=== PATIENT | female | born 1940 | race Caucasian/White ===

== ENCOUNTER 2017-01-03 17:43 | Emergency (ER) | payer BC, MEDICARE ==
[~2017-01-03] VITALS: Ht 162.6 cm; Wt 61.2 kg
[2017-01-03 18:24] VITALS: BP 108/65
[2017-01-03 18:33] LABS: ANION GAP 9 mmol/L (5-15); BLOOD UREA NITROGEN 9 mg/dL (7-18); CALCIUM 9.4 MG/DL (8.5-10.1); CARBON DIOXIDE 26 MMOL/L (21-32); CHLORIDE 99 MMOL/L (98-107); CREATININE 0.6 MG/DL (0.55-1.30); POTASSIUM 3.9 MMOL/L (3.5-5.1); SODIUM 134 MMOL/L (136-145)
[2017-01-03 18:37] LABS: HEMATOCRIT 46.6 % (37.0-47.0); HEMOGLOBIN 14.9 G/DL (12.0-16.0); MEAN CORPUSCULAR VOLUME 112 FL (80-99); PLATELET COUNT 200 K/UL (150-450); RED BLOOD COUNT 4.17 M/UL (4.20-5.40); RED CELL DISTRIBUTION WIDTH 10.8 % (11.6-14.8); WHITE BLOOD COUNT 7.2 K/UL (4.8-10.8)
[2017-01-03 18:38] LABS: BASOPHILS % (AUTO) 1.9 % (0.0-2.0); EOSINOPHILS % (AUTO) 0.8 % (0.0-3.0); LYMPHOCYTES % (AUTO) 29.2 % (20.0-45.0); NEUTROPHILS % (AUTO) 56.1 % (45.0-75.0)
[2017-01-03 18:39] LABS: ALANINE AMINOTRANSFERASE 69 U/L (12-78); ALBUMIN 3.7 G/DL (3.4-5.0); ALBUMIN/GLOBULIN RATIO 1.1 (1.0-2.7); ALKALINE PHOSPHATASE 75 U/L (46-116); ASPARTATE AMINO TRANSFERASE 86 U/L (15-37); BILIRUBIN,TOTAL 0.4 MG/DL (0.2-1.0)
[2017-01-03 19:18] VITALS: BP 109/67
[2017-01-03 19:20] VITALS: BP 109/67
--- NOTE | 2017-01-03 19:38 | Emergency Room Report ---
History of Present Illness General Chief Complaint: Alcohol Intoxication Source: EMS Present Illness HPI 76-year-old female presents ED for evaluation. States that she has been drinking today at a hotel. Hotel staff called 911. Patient states she's been feeling depressed because several family members have . Denies any suicidal homicidal ideation. Denies drug use. No other aggravating relieving factors. Denies any other associated symptoms Allergies: Coded Allergies: No Known Allergies (Unverified , 01/03/17) Patient History Past Medical History: none Past Surgical History: none Pertinent Family History: none Social History: Reports: alcohol use, Denies: smoking, drug use Now: No Immunizations: UTD Reviewed Nursing Documentation: PMH: Agreed, PSxH: Agreed Nursing Documentation-PMH Past Medical History: No Stated History Review of Systems All Other Systems: negative except mentioned in HPI Physical Exam Vital Signs Date Time Temp Pulse Resp B/P (MAP) Pulse Ox O2 Delivery O2 Flow Rate FiO2 01/03/17 17:41 98.8 70 16 108/65 99 Room Air Sp02 EP Interpretation: reviewed, normal General Appearance: no apparent distress, alert, GCS 15, non-toxic Head: normocephalic, atraumatic Eyes: bilateral eye normal inspection, bilateral eye PERRL ENT: hearing grossly normal, normal pharynx, no angioedema, normal voice Neck: full range of motion, supple/symm/no masses Respiratory: chest non-tender, lungs clear, normal breath sounds, speaking full sentences Cardiovascular #1: regular rate, rhythm, no edema Cardiovascular #2: 2+ carotid (R), 2+ carotid (L), 2+ radial (R), 2+ radial (L) , 2+ dorsalis pedis (R), 2+ dorsalis pedis (L) Gastrointestinal: normal bowel sounds, non tender, soft, non-distended, no guarding, no rebound Rectal: deferred Genitourinary: normal inspection, no CVA tenderness Musculoskeletal: back normal, gait/station normal, normal range of motion, non- tender Neurologic: alert, oriented x3, responsive, motor strength/tone normal, sensory intact, speech normal Psychiatric: judgement/insight normal, memory normal, mood/affect normal, no suicidal/homicidal ideation Reflexes: 3+ bicep (R), 3+ bicep (L), 3+ tricep (R), 3+ tricep (L), 3+ knee (R) , 3+ knee (L) Skin: normal color, no rash, warm/dry, well hydrated Lymphatic: no adenopathy Medical Decision Making Diagnostic Impression: Primary Impression: Acute alcoholic intoxication Qualified Codes: F10.929 - Alcohol use, unspecified with intoxication, unspecified ER Course Hospital Course 76-year-old he male presents ED feeling depressed, drinking Differential diagnoses include: Psychosis, EtOH, drug abuse Clinical course patient placed on stretcher. On environmental monitoring technician. After initial history and physical ordered labs, IV fluids Labs reviewed-electrolytes okay, no leukocytosis, hemoglobin/hematocrit stable, ETOH elevated Patient is now awake alert oriented x3, ambulating i. I feel this is a highly complex case requiring extensive working including EKG/Rhythm strip, Xray/CT/US, Blood/urine lab work, repeat exams while in ED, and administration of strong opiates/narcotics for pain control, admission to hospital or close patient follow up. Diagnosis - alcohol intoxication Stable and discharged to home. Followup with PMD. Return to ED if symptoms recur or worsen Labs Test 01/03/17 18:00 White Blood Count 7.2 K/UL (4.8-10.8) Red Blood Count 4.17 M/UL (4.20-5.40) Hemoglobin 14.9 G/DL (12.0-16.0) Hematocrit 46.6 % (37.0-47.0) Mean Corpuscular Volume 112 FL (80-99) Mean Corpuscular Hemoglobin 35.7 PG (27.0-31.0) Mean Corpuscular Hemoglobin Concent 32.0 G/DL (32.0-36.0) Red Cell Distribution Width 10.8 % (11.6-14.8) Platelet Count 200 K/UL (150-450) Mean Platelet Volume 8.4 FL (6.5-10.1) Neutrophils (%) (Auto) 56.1 % (45.0-75.0) Lymphocytes (%) (Auto) 29.2 % (20.0-45.0) Monocytes (%) (Auto) 12.0 % (1.0-10.0) Eosinophils (%) (Auto) 0.8 % (0.0-3.0) Basophils (%) (Auto) 1.9 % (0.0-2.0) Sodium Level 134 MMOL/L (136-145) Potassium Level 3.9 MMOL/L (3.5-5.1) Chloride Level 99 MMOL/L (98-107) Carbon Dioxide Level 26 MMOL/L (21-32) Anion Gap 9 mmol/L (5-15) Blood Urea Nitrogen 9 mg/dL (7-18) Creatinine 0.6 MG/DL (0.55-1.30) Estimat Glomerular Filtration Rate mL/min (>60) Glucose Level 95 MG/DL (74-106) Calcium Level 9.4 MG/DL (8.5-10.1) Total Bilirubin 0.4 MG/DL (0.2-1.0) Aspartate Amino Transf (AST/SGOT) 86 U/L (15-37) Alanine Aminotransferase (ALT/SGPT) 69 U/L (12-78) Alkaline Phosphatase 75 U/L (46-116) Total Protein 7.1 G/DL (6.4-8.2) Albumin 3.7 G/DL (3.4-5.0) Globulin 3.4 g/dL Albumin/Globulin Ratio 1.1 (1.0-2.7) Salicylates Level 1.6 ug/mL (2.8-20) Urine Opiates Screen Negative (NEGATIVE) Acetaminophen Level < 2 MCG/ML (10-30) Urine Barbiturates Screen Negative (NEGATIVE) Phencyclidine (PCP) Screen Negative (NEGATIVE) Urine Amphetamines Screen Negative (NEGATIVE) Urine Benzodiazepines Screen Negative (NEGATIVE) Urine Cocaine Screen Negative (NEGATIVE) Urine Marijuana (THC) Screen Negative (NEGATIVE) Serum Alcohol 177 mg/dL Last Vital Signs Date Time Temp Pulse Resp B/P (MAP) Pulse Ox O2 Delivery O2 Flow Rate FiO2 01/03/17 19:20 98.8 85 17 109/67 99 Room Air Status: improved Disposition: HOME, SELF-CARE Condition: Stable Scripts Unable to Obtain Active Prescriptions or Reported Meds Referrals: NOT CHOSEN IPA/MD,REFERRING (PCP) Patient Instructions: Alcohol Intoxication LOGAN COMBS M.D. Jan 03, 2017 19:38
[2017-01-31] MEDS ORDERED: UNOBMED (20:12)
== END 2017-01-03 19:10 | disposition home or self-care (01) ==
LOC: EDBD 17:43 → EMR 18:50 → EDBD 18:50 → EMR 19:10
DX: F10.129 Alcohol abuse with intoxication, unspecified (principal)
CPT/HCPCS: 36415; 80053; 80307; 85025; 96360; 99284; G0480; 80329

== ENCOUNTER 2017-01-31 20:14 | Emergency (ER) | payer BC ==
[~2017-01-31] VITALS: Ht 162.6 cm; Wt 68.0 kg
[~2017-01-31 20:14] MED LIST: UNOBMED
[2017-01-31] MEDS ORDERED: Haloperidol 5mg/ml Inj IM ONE (21:30)
[2017-01-31] MEDS ORDERED: DiphenhydrAMINE 50mg/ml Inj IM ONE (21:30)
[2017-01-31] MEDS ORDERED: Thiamine HCl 100 MG in D5W 55 ML IVPB SCH (21:45)
[2017-02-01 05:43] VITALS: BP 136/70
--- NOTE | 2017-02-01 06:06 | Emergency Room Report ---
History of Present Illness General Chief Complaint: Altered Level of Consciousness Source: EMS Present Illness Allergies: Coded Allergies: No Known Allergies (Unverified , 01/03/17) UNABLE TO ASSESS (Unverified , 01/31/17) Patient History Last Menstrual Period: NA Nursing Documentation-PM Past Medical History Deferred: Pt Cognitively Impaired Physical Exam Vital Signs Date Time Temp Pulse Resp B/P (MAP) Pulse Ox O2 Delivery O2 Flow Rate FiO2 01/31/17 20:08 80 16 144/72 97 Room Air 02/01/17 05:43 98.3 Medical Decision Making Diagnostic Impression: Primary Impression: Acute alcoholic intoxication Qualified Codes: F10.929 - Alcohol use, unspecified with intoxication, unspecified ER Course Signed out to me at 10am by Dr Morrow See his note for complete HPI, PE, and Assessment/plan For me, patient with ++AOB, wreaked of alcohol Patient acutely intoxicated I did not think she warranted tx with IV thiamine or needed laboratory testing because it was most likely it was an uncomplicated ETOH intoxication She had to be sedated because she was trying to walk around the ER with unsteady gait, was harassing staff, and potential fall/danger to herself In the morning she was alert and oriented Tolerating PO Ambulating with steady gait ER course: Patient has remained stable during ED stay. Patient is to be discharged to home. Patient is instructed to follow up with their primary care doctor within 5 days. Strict return precautions discussed with patient such as fever, chills, worsening/severe pain, nausea, vomiting, which may indicate severe illness. Patient verbalizes understanding and agrees with plan. Please note that this Emergency Department Report was dictated using [employer] examiner technology software, occasionally this can lead to erroneous entry secondary to interpretation by the dictation equipment Last Vital Signs Date Time Temp Pulse Resp B/P (MAP) Pulse Ox O2 Delivery O2 Flow Rate FiO2 02/01/17 05:43 98.3 68 17 136/70 98 Room Air Status: improved Disposition: HOME, SELF-CARE Condition: Improved Referrals: STARLAREFERRING (PCP) Patient Instructions: Alcohol Intoxication, [id number] ISAI ALVAREZ M.D. Feb 01, 2017 06:06
--- NOTE | 2017-02-02 08:23 | Emergency Room Report ---
History of Present Illness General Chief Complaint: Altered Level of Consciousness Source: Patient, EMS Present Illness HPI Patient is a 76 year-old female brought to emergency department by EMS after increased altered mental status. Per EMS patient had been brought to the hospital after drinking heavily. She denied any medical complaints. She did not report any recent trauma or falls. She had not been vomiting. She had recent ED visit under similar circumstance for alcohol intoxication. Allergies: Coded Allergies: No Known Allergies (Unverified , 01/03/17) UNABLE TO ASSESS (Unverified , 01/31/17) Patient History Past Medical History: see triage record Last Menstrual Period: NA Reviewed Nursing Documentation: PMH: Agreed, PSxH: Agreed Nursing Documentation-PMH Past Medical History Deferred: Pt Cognitively Impaired Review of Systems All Other Systems: limited - by poor cooperation and intoxication Physical Exam Vital Signs Date Time Temp Pulse Resp B/P (MAP) Pulse Ox O2 Delivery O2 Flow Rate FiO2 01/31/17 20:08 80 16 144/72 97 Room Air 02/01/17 05:43 98.3 General Appearance: well appearing, no apparent distress, alert, thin Head: normocephalic, atraumatic Eyes: bilateral eye PERRL ENT: hearing grossly normal, normal voice Neck: full range of motion, supple Respiratory: no respiratory distress, speaking full sentences Cardiovascular #1: normal inspection, no edema Gastrointestinal: normal inspection Musculoskeletal: normal inspection, back normal Neurologic: alert, oriented x3, normal gait, abnormal gait - unsteady, slurred speech Psychiatric: mood/affect normal Skin: no rash Medical Decision Making Diagnostic Impression: Primary Impression: Acute alcoholic intoxication Qualified Codes: F10.929 - Alcohol use, unspecified with intoxication, unspecified ER Course Patient presented for altered mental status. Differential diagnosis included but was not limited to alcohol intoxication, cva, intracranial hemorrhage, among others. Patient has a benign exam and appear clinically intoxicated. Patient was given medications for sedation due to unsteady gait and persistent agitation. Patient was endorsed to Dr. King for reevalutation and final disposition. Last Vital Signs Date Time Temp Pulse Resp B/P (MAP) Pulse Ox O2 Delivery O2 Flow Rate FiO2 02/01/17 05:43 98.3 68 17 136/70 98 Room Air Status: improved Disposition: HOME, SELF-CARE Condition: Improved Referrals: LUC-SINAISATNAM,REFERRING (PCP) Patient Instructions: Alcohol Intoxication, [id number] Frankie Morrow Feb 02, 2017 08:23
== END 2017-02-01 05:43 | disposition home or self-care (01) ==
LOC: EDBD 20:14 → EMR 20:55
DX: F10.129 Alcohol abuse with intoxication, unspecified (principal); R41.82 Altered mental status, unspecified
CPT/HCPCS: 96372; 99284; J1200; J1630